=== PATIENT | female | born 1945 | race Hispanic/Latino ===

== ENCOUNTER 2018-01-12 16:49 | Emergency (ER) | payer MEDICARE, OTHER ==
[2018-01-12 17:27] LABS: BASOPHILS % (AUTO) 1.5 % (0.0-5.0); EOSINOPHILS % (AUTO) 5.7 % (0.0-8.0); LYMPHOCYTES % (AUTO) 28.9 % (21.0-51.0); MEAN CORPUSCULAR HEMOGLOBIN 28.3 pg (27.0-33.0); MEAN CORPUSCULAR HGB CONC 33.3 g/dL (32.0-36.0); MONOCYTES % (AUTO) 9.1 % (3.0-13.0); NEUTROPHILS % (AUTO) 54.8 % (40.0-77.0); PLATELET COUNT (AUTO) 665 K/uL (130-400); RED BLOOD CELL COUNT(AUTO) 4.47 MIL/uL (4.00-5.50); RED CELL DISTRIBUTION WIDTH 14.5 % (11.0-15.5); WHITE BLOOD COUNT (AUTO) 10.3 K/uL (4.8-10.8)
[2018-01-12 17:37] LABS: CREATININE 0.6 mg/dL (0.5-1.5); INR 0.94 (0.85-1.15); PARTIAL THROMBOPLASTIN TIME 24.3 SEC (26.3-35.5); POTASSIUM 4.1 mmol/L (3.5-5.1); PROTHROMBIN TIME 9.9 SEC (9.6-11.6)
[2018-01-12 17:42] LABS: ALBUMIN 3.5 g/dL (3.5-5.0); BILIRUBIN,TOTAL 0.3 mg/dL (0.2-1.0); TOTAL PROTEIN, SERUM 7.3 g/dL (6.0-8.3)
[2018-01-12 18:37] LABS: APPEARANCE,URINE Clear (CLEAR); BILIRUBIN,URINE Negative (NEGATIVE); COLOR,URINE Yellow (YELLOW); GLUCOSE, URINE (UA) 500 mg/dL (NEGATIVE); KETONES,URINE Negative (NEGATIVE); LEUKOCYTE ESTERASE ,URINE Negative (NEGATIVE); NITRATE,URINE Negative (NEGATIVE); OCCULT BLOOD,URINE Negative (NEGATIVE); PH,URINE 6.5 (5.0-8.0); PROTEIN,URINE Negative (NEGATIVE); UROBILINOGEN,URINE 0.2 mg/dL (0.2-1.0)
[2018-01-12 19:38] LABS: BACTERIA,URINE Rare /HPF (None Seen); RBC,URINE 0-1 /HPF (0-1); SQUAMOUS EPITHELIAL CELL,UR Rare /LPF (0-2); WBC,URINE 0-1 /HPF (0-1)
[2018-01-12] MEDS ORDERED: PREDNISONE 20 MG TABLET ONE (20:11)
== END 2018-01-12 20:32 | disposition home or self-care (01) ==
LOC: EDH 16:49
DX: G51.0 Bell's palsy (principal); E11.65 Type 2 diabetes mellitus with hyperglycemia; I10 Essential (primary) hypertension; E78.5 Hyperlipidemia, unspecified; R79.1 Abnormal coagulation profile; Z98.51 Tubal ligation status; Z88.8 Allergy status to other drugs, medicaments and biological substances
CPT/HCPCS: 36415; 70450; 80053; 81001; 82948; 85025; 85610; 85730

== ENCOUNTER 2018-01-17 21:33 | Emergency (ER) | payer OTHER | END 2018-01-17 21:38 | disposition home or self-care (01) | LOC: EDH 21:33 | DX: Z53.21 Procedure and treatment not carried out due to patient leaving prior to being seen by health care provider (principal) ==

== ENCOUNTER 2022-10-27 17:24 | Inpatient (IN) | payer MEDICARE ==
[~2022-10-27] VITALS: Ht 154.9 cm; Wt 57.1 kg
[2022-10-27] MEDS ORDERED: IPRATROPIUM/ALBUTEROL SULFATE 3 ML SOLUTION IH ONE (17:30)
[2022-10-27 17:52] LABS: BASOPHILS % (AUTO) 1.5 % (0.0-5.0); EOSINOPHILS % (AUTO) 0.6 % (0.0-8.0); HEMATOCRIT 34.4 % (36-48); LYMPHOCYTES % (AUTO) 15.5 % (21.0-51.0); MEAN CORPUSCULAR HEMOGLOBIN 29.8 pg (27.0-33.0); MEAN CORPUSCULAR HGB CONC 31.1 g/dL (32.0-36.0); MEAN CORPUSCULAR VOLUME 95.8 fL (79-99); MONOCYTES % (AUTO) 14.3 % (3.0-13.0); NEUTROPHILS % (AUTO) 67.4 % (40.0-77.0); PLATELET COUNT (AUTO) 419 K/uL (130-400); RED BLOOD CELL COUNT(AUTO) 3.59 MIL/uL (4.00-5.50); RED CELL DISTRIBUTION WIDTH 19.7 % (11.0-15.5); WHITE BLOOD COUNT (AUTO) 12.2 K/uL (4.8-10.8)
[2022-10-27 18:20] LABS: POTASSIUM 3.6 mmol/L (3.5-5.1); TOTAL PROTEIN, SERUM 6.4 g/dL (6.0-8.3)
[2022-10-27] MEDS ORDERED: FUROSEMIDE 20MG VIAL IV ONE (19:00)
[2022-10-27] MEDS ORDERED: FUROSEMIDE 40MG VIAL IV ONE (19:30)
[2022-10-27] MEDS ORDERED: ACETAMINOPHEN 650 MG SUPPOSITORY RC PRN (20:00)
[2022-10-27] MEDS ORDERED: DOCUSATE SODIUM 100 MG CAP PO PRN (20:00)
[2022-10-27] MEDS ORDERED: LABETALOL 20MG SYG IV PRN (20:00)
[2022-10-27] MEDS ORDERED: CLONIDINE HCL 0.1 MG TABLET PO PRN (20:00)
[2022-10-27] MEDS ORDERED: IPRATROPIUM 0.5 MG/2.5 ML INH IH PRN (20:00)
[2022-10-27] MEDS ORDERED: LACTULOSE 20 GM/30 ML UDCUP PO PRN (20:00)
[2022-10-27] MEDS ORDERED: ALBUTEROL 0.083% 2.5 MG/3 ML INH IH PRN (20:00)
[2022-10-27] MEDS ORDERED: HYDRALAZINE 20MG/ML VIAL IV PRN (20:00)
[2022-10-27] MEDS ORDERED: AZITHROMYCIN 500MG+NS 250ML IVPB SCH (20:30)
[2022-10-27] MEDS ORDERED: CEFTRIAXONE 1G VIAL IVP ONE (20:30)
[2022-10-27] MEDS: ATORVASTATIN 40 MG TABLET PO SCH (21:36)
[2022-10-28] VITALS (18 sets, daily range): BP systolic 120–145; BP diastolic 49–58
[2022-10-28] MEDS: FUROSEMIDE 40MG VIAL IV SCH ×2 (00:20→07:43)
[2022-10-28] MEDS ORDERED: FUROSEMIDE 40MG VIAL IV SCH (05:30)
[2022-10-28 07:12] LABS: BASOPHILS % (AUTO) 1.8 % (0.0-5.0); EOSINOPHILS % (AUTO) 0.8 % (0.0-8.0); HEMATOCRIT 30.6 % (36-48); LYMPHOCYTES % (AUTO) 15.5 % (21.0-51.0); MEAN CORPUSCULAR HEMOGLOBIN 30.1 pg (27.0-33.0); MEAN CORPUSCULAR HGB CONC 30.7 g/dL (32.0-36.0); MEAN CORPUSCULAR VOLUME 98.1 fL (79-99); MONOCYTES % (AUTO) 15.4 % (3.0-13.0); NEUTROPHILS % (AUTO) 65.6 % (40.0-77.0); PLATELET COUNT (AUTO) 358 K/uL (130-400); RED BLOOD CELL COUNT(AUTO) 3.12 MIL/uL (4.00-5.50); RED CELL DISTRIBUTION WIDTH 19.5 % (11.0-15.5); WHITE BLOOD COUNT (AUTO) 11.9 K/uL (4.8-10.8)
[2022-10-28 07:21] LABS: HEMOGLOBIN A1C 4.8 % (4.0-6.0)
[2022-10-28] MEDS ORDERED: GUAIFENESIN-DM 200/20 MG 10 ML PO PRN (07:30)
[2022-10-28] MEDS ORDERED: DOXYCYCLINE 100MG+NS 250ML IV SCH (07:30)
[2022-10-28] MEDS: IPRATROPIUM 0.5 MG/2.5 ML INH IH SCH ×5 (07:33→22:34)
[2022-10-28 07:34] LABS: CREATININE 2.3 mg/dL (0.5-1.5); PHOSPHORUS 2.6 mg/dL (2.5-4.9); POTASSIUM 3.7 mmol/L (3.5-5.1)
[2022-10-28] MEDS: ASPIRIN 81MG CHEW TAB PO SCH (07:43)
[2022-10-28] MEDS: APIXABAN 2.5 MG TABLET PO SCH ×2 (07:45→20:38)
[2022-10-28 08:10] LABS: THYROID STIMULATING HORMONE 119.08 uIU/mL (0.36-3.74)
[2022-10-28] MEDS ORDERED: ENOXAPARIN SODIUM 30 MG/0.3 ML SQ SCH (09:00)
[2022-10-28] MEDS: DEXTROSE 50%-WATER 50 ML DISP.SYRIN IV PRN ×2 (09:30→14:05)
[2022-10-28] MEDS ORDERED: GLUCAGON 1MG KIT 1 MG ML IM PRN (09:30)
[2022-10-28] MEDS ORDERED: POTASSIUM CHLORIDE 20MEQ/100ML 100 ML IV PRN ×2 (09:30)
[2022-10-28] MEDS ORDERED: LIDOCAINE HCL-MPF 1% 2ML VIAL IV PRN ×2 (09:30)
[2022-10-28] MEDS ORDERED: LEVOTHYROXINE 100MCG VIAL IV SCH (10:00)
[2022-10-28] MEDS: EPOETIN ALFA-EPBX (NON-ESRD) 10,000 UNIT/ML VIAL SQ SCH (12:37)
[2022-10-28 13:40] LABS: ABG BASE EXCESS -3.6 mmol/L (-2.0-3.0); ABG HCO3 22.8 mmol/L (21.0-28.0); ABG OXYGEN SATURATION 96.2 % (95.0-99.0); ABG PCO2 46 mmHg (32-45)
[2022-10-28] MEDS ORDERED: HYDROCORTISONE SOD SUCCINATE 100 MG/2 ML VIAL IV SCH (15:07)
[2022-10-28] MEDS: HEPARIN 5,000 UNIT VIAL IRRIG PRN (20:00)
[2022-10-28] MEDS: DOXYCYCLINE 100MG+NS 250ML IV SCH (20:38)
[2022-10-28] MEDS: AMIODARONE 200 MG TABLET PO SCH (20:38)
[2022-10-28] MEDS: ATORVASTATIN 40 MG TABLET PO SCH (20:38)
[2022-10-29] MEDS: HYDROCORTISONE SOD SUCCINATE 100 MG/2 ML VIAL IV SCH ×5 (00:09→23:43)
[2022-10-29] MEDS: ZOSYN 3.375GM +NS 50ML IV SCH ×3 (00:19→23:43)
[2022-10-29] MEDS: ACETAMINOPHEN 325 MG TAB PO PRN ×2 (01:25→20:17)
[2022-10-29] MEDS: IPRATROPIUM 0.5 MG/2.5 ML INH IH SCH ×3 (02:38→10:16)
[2022-10-29 03:41] VITALS: BP 110/51
[2022-10-29 04:47] LABS: HEMATOCRIT 32.8 % (36-48); MEAN CORPUSCULAR HGB CONC 30.8 g/dL (32.0-36.0); MEAN CORPUSCULAR VOLUME 97.3 fL (79-99); RED BLOOD CELL COUNT(AUTO) 3.37 MIL/uL (4.00-5.50); RED CELL DISTRIBUTION WIDTH 19.5 % (11.0-15.5); WHITE BLOOD COUNT (AUTO) 8.5 K/uL (4.8-10.8)
[2022-10-29 05:07] LABS: CREATININE 1.7 mg/dL (0.5-1.5); POTASSIUM 4.3 mmol/L (3.5-5.1)
[2022-10-29] MEDS ORDERED: LEVOTHYROXINE 75 MCG TABLET PO SCH (06:30)
[2022-10-29] MEDS ORDERED: LEVOTHYROXINE 100MCG VIAL IV SCH ×4 (06:30→23:00)
[2022-10-29] MEDS ORDERED: LEVO250T75 PO (07:44)
[2022-10-29] MEDS ORDERED: IPRA3AMP24 IH (07:44)
[2022-10-29] MEDS ORDERED: GUAI600T50 PO (07:44)
[2022-10-29] MEDS ORDERED: MIDO10TA PO (07:48)
[2022-10-29] MEDS ORDERED: METO25TA6 PO (07:48)
[2022-10-29] MEDS ORDERED: ONDA4TAB10 PO (07:48)
[2022-10-29] MEDS ORDERED: AMIO200T68 PO (07:58)
[2022-10-29] MEDS ORDERED: FURO-152 PO (07:58)
[2022-10-29] MEDS ORDERED: LEVO25CA4 PO (07:58)
[2022-10-29] MEDS ORDERED: ASCO-382 PO (07:58)
[2022-10-29] MEDS ORDERED: APIX2.5T PO (07:58)
[2022-10-29] MEDS ORDERED: PARO10TA71 PO (07:58)
[2022-10-29] MEDS ORDERED: ATOR40TA71 PO (07:58)
[2022-10-29] MEDS ORDERED: FOLI1TAB85 PO (07:58)
[2022-10-29] MEDS ORDERED: MELA3TAB69 PO (07:58)
[2022-10-29] MEDS ORDERED: OMEP20TA20 PO (07:58)
[2022-10-29] MEDS ORDERED: ZINC220C6 PO (07:58)
[2022-10-29] MEDS ORDERED: AMLO-257 PO (07:58)
[2022-10-29 08:15] VITALS: BP 126/61
[2022-10-29] MEDS: DOXYCYCLINE 100MG+NS 250ML IV SCH ×2 (08:57→20:16)
[2022-10-29] MEDS: ASPIRIN 81MG CHEW TAB PO SCH (09:02)
[2022-10-29] MEDS: APIXABAN 2.5 MG TABLET PO SCH ×2 (09:02→20:16)
[2022-10-29 12:08] LABS: HEPATITIS B SURFACE ANTIGEN Non-Reactive (Nonreactive)
[2022-10-29 12:16] VITALS: BP 139/59
[2022-10-29 16:08] VITALS: BP 152/61
[2022-10-29 20:00] VITALS: BP 152/64
[2022-10-29] MEDS: AMIODARONE 200 MG TABLET PO SCH (20:16)
[2022-10-29] MEDS: ATORVASTATIN 40 MG TABLET PO SCH (20:16)
[2022-10-29 23:34] VITALS: BP 122/71
[2022-10-30] VITALS (20 sets, daily range): BP systolic 122–153; BP diastolic 52–81
[2022-10-30 05:00] LABS: HEMATOCRIT 33.6 % (36-48); MEAN CORPUSCULAR HGB CONC 31.3 g/dL (32.0-36.0); RED BLOOD CELL COUNT(AUTO) 3.5 MIL/uL (4.00-5.50); RED CELL DISTRIBUTION WIDTH 19.6 % (11.0-15.5); WHITE BLOOD COUNT (AUTO) 11.2 K/uL (4.8-10.8)
[2022-10-30 05:11] LABS: CREATININE 2.4 mg/dL (0.5-1.5); POTASSIUM 4.1 mmol/L (3.5-5.1)
[2022-10-30] MEDS: HYDROCORTISONE SOD SUCCINATE 100 MG/2 ML VIAL IV SCH ×5 (05:52→23:31)
[2022-10-30] MEDS: LEVOTHYROXINE 75 MCG TABLET PO SCH (05:52)
[2022-10-30] MEDS: ASPIRIN 81MG CHEW TAB PO SCH (08:25)
[2022-10-30] MEDS: DOXYCYCLINE 100MG+NS 250ML IV SCH ×2 (08:25→20:21)
[2022-10-30] MEDS: BALSAM PERU/CASTOR OIL 60 GM TUBE TP SCH (08:25)
[2022-10-30] MEDS: APIXABAN 2.5 MG TABLET PO SCH ×2 (08:25→20:21)
[2022-10-30] MEDS: HEPARIN 5,000 UNIT VIAL IRRIG PRN (12:45)
[2022-10-30] MEDS: ZOSYN 3.375GM +NS 50ML IV SCH ×2 (13:49→23:31)
[2022-10-30] MEDS: ONDANSETRON 4MG INJ IVP PRN (17:58)
[2022-10-30] MEDS: ATORVASTATIN 40 MG TABLET PO SCH (20:21)
[2022-10-30] MEDS: AMIODARONE 200 MG TABLET PO SCH (20:21)
[2022-10-31] VITALS (7 sets, daily range): BP systolic 109–149; BP diastolic 48–89
[2022-10-31 05:07] LABS: HEMATOCRIT 33.9 % (36-48); MEAN CORPUSCULAR HEMOGLOBIN 29.8 pg (27.0-33.0); MEAN CORPUSCULAR HGB CONC 32.7 g/dL (32.0-36.0); MEAN CORPUSCULAR VOLUME 91.1 fL (79-99); NUCLEATED RED BLOOD CELLS 0.2 % (0.0-0.19); RED BLOOD CELL COUNT(AUTO) 3.72 MIL/uL (4.00-5.50); RED CELL DISTRIBUTION WIDTH 19.5 % (11.0-15.5); WHITE BLOOD COUNT (AUTO) 10.2 K/uL (4.8-10.8)
[2022-10-31 05:33] LABS: CREATININE 2.1 mg/dL (0.5-1.5); POTASSIUM 3.2 mmol/L (3.5-5.1)
[2022-10-31] MEDS: HYDROCORTISONE SOD SUCCINATE 100 MG/2 ML VIAL IV SCH ×4 (06:18→23:54)
[2022-10-31] MEDS: LEVOTHYROXINE 75 MCG TABLET PO SCH (06:18)
[2022-10-31] MEDS: KCL 20 MEQ ERTAB PO PRN (06:19)
[2022-10-31] MEDS ORDERED: LEVOTHYROXINE 75 MCG TABLET PO SCH (06:30)
[2022-10-31] MEDS: BALSAM PERU/CASTOR OIL 60 GM TUBE TP SCH (09:00)
[2022-10-31] MEDS: APIXABAN 2.5 MG TABLET PO SCH ×2 (10:00→20:05)
[2022-10-31] MEDS: DOXYCYCLINE 100MG+NS 250ML IV SCH ×2 (10:00→20:04)
[2022-10-31] MEDS: ASPIRIN 81MG CHEW TAB PO SCH (10:01)
[2022-10-31] MEDS: ZOSYN 3.375GM +NS 50ML IV SCH ×2 (14:01→23:54)
[2022-10-31] MEDS ORDERED: ONDANSETRON ODT 4MG TAB PO PRN (20:00)
[2022-10-31] MEDS ORDERED: IPRATROPIUM/ALBUTEROL SULFATE 3 ML SOLUTION IH PRN (20:00)
[2022-10-31] MEDS ORDERED: GUAIFENESIN 600 MG TABLET.ER PO PRN (20:00)
[2022-10-31] MEDS: POTASSIUM CHLORIDE 10% ELIXIR 20 MEQ/15 ML UDCUP PO PRN (20:04)
[2022-10-31] MEDS: AMIODARONE 200 MG TABLET PO SCH (20:05)
[2022-10-31] MEDS: ATORVASTATIN 40 MG TABLET PO SCH (20:05)
[2022-10-31] MEDS ORDERED: 0.9% NACL 250ML 250 ML ONE (20:13)
[2022-10-31] MEDS ORDERED: Melatonin 3 MG PO PRN (20:30)
[2022-10-31] MEDS ORDERED: MIDODRINE HCL 5 MG TABLET PO PRN (20:30)
[2022-10-31] MEDS: DEXTROSE 50%-WATER 50 ML DISP.SYRIN IV PRN (20:51)
[2022-10-31] MEDS ORDERED: APIXABAN 2.5 MG TABLET PO SCH (21:00)
[2022-10-31] MEDS ORDERED: ATORVASTATIN 40 MG TABLET PO SCH (21:00)
[2022-10-31] MEDS: METOPROLOL TARTRATE 25 MG TAB PO SCH (22:17)
[2022-10-31] MEDS: ASCORBIC ACID 500 MG TAB PO SCH (22:17)
[2022-11-01 04:32] VITALS: BP 118/50
[2022-11-01 04:34] LABS: HEMATOCRIT 34.3 % (36-48); MEAN CORPUSCULAR HEMOGLOBIN 29.8 pg (27.0-33.0); MEAN CORPUSCULAR HGB CONC 31.8 g/dL (32.0-36.0); MEAN CORPUSCULAR VOLUME 93.7 fL (79-99); NUCLEATED RED BLOOD CELLS 0.3 % (0.0-0.19); RED BLOOD CELL COUNT(AUTO) 3.66 MIL/uL (4.00-5.50); RED CELL DISTRIBUTION WIDTH 19.4 % (11.0-15.5); WHITE BLOOD COUNT (AUTO) 11.9 K/uL (4.8-10.8)
[2022-11-01 04:44] LABS: CREATININE 2.7 mg/dL (0.5-1.5); POTASSIUM 3.6 mmol/L (3.5-5.1)
[2022-11-01] MEDS: HYDROCORTISONE SOD SUCCINATE 100 MG/2 ML VIAL IV SCH ×4 (05:02→22:57)
[2022-11-01] MEDS: LEVOTHYROXINE 75 MCG TABLET PO SCH (05:56)
[2022-11-01 08:00] VITALS: BP 132/60
[2022-11-01] MEDS: Vitamin B Complex/Vit C/Folic Acid PO SCH (08:46)
[2022-11-01] MEDS: DOXYCYCLINE 100MG+NS 250ML IV SCH ×2 (08:46→19:42)
[2022-11-01] MEDS: ASPIRIN 81MG CHEW TAB PO SCH (08:47)
[2022-11-01] MEDS: AMLODIPINE 5 MG TAB PO SCH (08:47)
[2022-11-01] MEDS: APIXABAN 2.5 MG TABLET PO SCH ×2 (08:47→19:43)
[2022-11-01] MEDS: ZINC SULFATE 220 CAPSULE PO SCH (08:47)
[2022-11-01] MEDS: METOPROLOL TARTRATE 25 MG TAB PO SCH ×2 (08:54→19:42)
[2022-11-01] MEDS: PANTOPRAZOLE 40 MG TAB DR PO SCH (08:54)
[2022-11-01] MEDS: ASCORBIC ACID 500 MG TAB PO SCH ×2 (08:54→19:43)
[2022-11-01] MEDS: BALSAM PERU/CASTOR OIL 60 GM TUBE TP SCH (09:00)
[2022-11-01 12:00] VITALS: BP 136/64
[2022-11-01] MEDS: MEROPENEM 1 GM VIAL IVP SCH ×2 (13:01→21:58)
[2022-11-01 16:00] VITALS: BP 133/55
[2022-11-01] MEDS: AMIODARONE 200 MG TABLET PO SCH (19:42)
[2022-11-01] MEDS: ATORVASTATIN 40 MG TABLET PO SCH (19:43)
[2022-11-01 20:15] VITALS: BP 143/54
[2022-11-01 23:20] VITALS: BP 105/69
[2022-11-02] VITALS (20 sets, daily range): BP systolic 120–147; BP diastolic 47–96
[2022-11-02 03:59] LABS: HEMATOCRIT 34.1 % (36-48); MEAN CORPUSCULAR HEMOGLOBIN 29.5 pg (27.0-33.0); MEAN CORPUSCULAR HGB CONC 32.6 g/dL (32.0-36.0); MEAN CORPUSCULAR VOLUME 90.7 fL (79-99); NUCLEATED RED BLOOD CELLS 0.4 % (0.0-0.19); RED BLOOD CELL COUNT(AUTO) 3.76 MIL/uL (4.00-5.50); RED CELL DISTRIBUTION WIDTH 19.9 % (11.0-15.5); WHITE BLOOD COUNT (AUTO) 14.1 K/uL (4.8-10.8)
[2022-11-02 04:03] LABS: PLATELET COUNT (AUTO) 717 K/uL (130-400)
[2022-11-02 04:06] LABS: CREATININE 3.3 mg/dL (0.5-1.5); POTASSIUM 3.9 mmol/L (3.5-5.1)
[2022-11-02] MEDS: LEVOTHYROXINE 75 MCG TABLET PO SCH (04:40)
[2022-11-02] MEDS: HYDROCORTISONE SOD SUCCINATE 100 MG/2 ML VIAL IV SCH ×4 (04:40→21:17)
[2022-11-02 04:51] LABS: PLATELET MORPHOLOGY COMMENT LARGE PLTS PRESENT
[2022-11-02] MEDS: DOXYCYCLINE 100MG+NS 250ML IV SCH ×2 (09:00→21:17)
[2022-11-02] MEDS: Vitamin B Complex/Vit C/Folic Acid PO SCH (09:00)
[2022-11-02] MEDS: APIXABAN 2.5 MG TABLET PO SCH (09:00)
[2022-11-02] MEDS: ASCORBIC ACID 500 MG TAB PO SCH ×2 (09:00→21:16)
[2022-11-02] MEDS: AMLODIPINE 5 MG TAB PO SCH (09:00)
[2022-11-02] MEDS: METOPROLOL TARTRATE 25 MG TAB PO SCH ×2 (09:00→21:16)
[2022-11-02] MEDS: PANTOPRAZOLE 40 MG TAB DR PO SCH (09:00)
[2022-11-02] MEDS: ASPIRIN 81MG CHEW TAB PO SCH (09:00)
[2022-11-02] MEDS: BALSAM PERU/CASTOR OIL 60 GM TUBE TP SCH (09:00)
[2022-11-02] MEDS: ZINC SULFATE 220 CAPSULE PO SCH (09:00)
[2022-11-02] MEDS ORDERED: BENZONATATE 100 MG CAPSULE PO PRN (11:30)
[2022-11-02] MEDS ORDERED: GUAIFENESIN SUGAR-FREE 100 MG/5 ML UDCUP PO PRN (11:30)
[2022-11-02] MEDS: HEPARIN 5,000 UNIT VIAL IRRIG PRN (13:26)
[2022-11-02] MEDS: MEROPENEM 1 GM VIAL IVP SCH ×2 (14:20→21:17)
[2022-11-02] MEDS: EPOETIN ALFA-EPBX (NON-ESRD) 10,000 UNIT/ML VIAL SQ SCH (14:21)
[2022-11-02 14:39] LABS: INR 1.45 (0.85-1.15); PROTHROMBIN TIME 15.5 SEC (9.6-11.6)
[2022-11-02] MEDS: TEMAZEPAM 15 MG CAPSULE PO PRN (19:23)
[2022-11-02] MEDS: AMIODARONE 200 MG TABLET PO SCH (21:16)
[2022-11-02] MEDS: ATORVASTATIN 40 MG TABLET PO SCH (21:16)
[2022-11-02] MEDS: DEXTROSE 50%-WATER 50 ML DISP.SYRIN IV PRN (22:21)
[2022-11-03] MEDS: ACETAMINOPHEN 325 MG TAB PO PRN (03:30)
[2022-11-03 04:28] VITALS: BP 123/60
[2022-11-03 04:52] LABS: HEMATOCRIT 37.6 % (36-48); MEAN CORPUSCULAR HEMOGLOBIN 29.3 pg (27.0-33.0); MEAN CORPUSCULAR HGB CONC 31.4 g/dL (32.0-36.0); MEAN CORPUSCULAR VOLUME 93.3 fL (79-99); NUCLEATED RED BLOOD CELLS 0.2 % (0.0-0.19); RED BLOOD CELL COUNT(AUTO) 4.03 MIL/uL (4.00-5.50); RED CELL DISTRIBUTION WIDTH 20.2 % (11.0-15.5); WHITE BLOOD COUNT (AUTO) 12.9 K/uL (4.8-10.8)
[2022-11-03 05:07] LABS: ALBUMIN 2.4 g/dL (3.5-5.0); CREATININE 2.4 mg/dL (0.5-1.5); MAGNESIUM 1.5 mg/dL (1.80-2.40); POTASSIUM 3.6 mmol/L (3.5-5.1); TOTAL PROTEIN, SERUM 5.2 g/dL (6.0-8.3)
[2022-11-03] MEDS: LEVOTHYROXINE 75 MCG TABLET PO SCH (05:47)
[2022-11-03] MEDS: POTASSIUM CHLORIDE 10% ELIXIR 20 MEQ/15 ML UDCUP PO PRN (05:47)
[2022-11-03] MEDS: MAGNESIUM 2GM PREMIX 50ML 50 ML IV PRN (05:47)
[2022-11-03 07:30] VITALS: BP 121/63
[2022-11-03] MEDS: PANTOPRAZOLE 40 MG TAB DR PO SCH (09:23)
[2022-11-03] MEDS: HYDROCORTISONE SOD SUCCINATE 100 MG/2 ML VIAL IV SCH ×2 (09:23→19:25)
[2022-11-03] MEDS: Vitamin B Complex/Vit C/Folic Acid PO SCH (09:23)
[2022-11-03] MEDS: DOXYCYCLINE 100MG+NS 250ML IV SCH ×2 (09:23→19:24)
[2022-11-03] MEDS: AMLODIPINE 5 MG TAB PO SCH (09:23)
[2022-11-03] MEDS: ASPIRIN 81MG CHEW TAB PO SCH (09:24)
[2022-11-03] MEDS: ZINC SULFATE 220 CAPSULE PO SCH (09:24)
[2022-11-03] MEDS: METOPROLOL TARTRATE 25 MG TAB PO SCH ×2 (09:24→19:24)
[2022-11-03] MEDS: ASCORBIC ACID 500 MG TAB PO SCH ×2 (09:24→19:24)
[2022-11-03] MEDS: BALSAM PERU/CASTOR OIL 60 GM TUBE TP SCH (09:39)
[2022-11-03] MEDS: MEROPENEM 1 GM VIAL IVP SCH ×2 (10:36→21:43)
[2022-11-03] MEDS: KCL 20 MEQ ERTAB PO PRN (10:38)
[2022-11-03 11:00] VITALS: BP 135/70
[2022-11-03 16:00] VITALS: BP 167/53
[2022-11-03] MEDS: AMIODARONE 200 MG TABLET PO SCH (19:24)
[2022-11-03] MEDS: TEMAZEPAM 15 MG CAPSULE PO PRN (19:24)
[2022-11-03] MEDS: ATORVASTATIN 40 MG TABLET PO SCH (19:24)
[2022-11-03 20:44] VITALS: BP 128/65
[2022-11-03 23:43] VITALS: BP 113/49
[2022-11-04] VITALS (18 sets, daily range): BP systolic 111–145; BP diastolic 55–82
[2022-11-04] MEDS: LEVOTHYROXINE 75 MCG TABLET PO SCH (05:21)
[2022-11-04] MEDS: METOPROLOL TARTRATE 25 MG TAB PO SCH ×2 (09:00→21:56)
[2022-11-04] MEDS: AMLODIPINE 5 MG TAB PO SCH (09:00)
[2022-11-04] MEDS: BALSAM PERU/CASTOR OIL 60 GM TUBE TP SCH (09:00)
[2022-11-04] MEDS: MEROPENEM 1 GM VIAL IVP SCH ×2 (09:08→23:50)
[2022-11-04] MEDS: DOXYCYCLINE 100MG+NS 250ML IV SCH ×2 (09:08→21:55)
[2022-11-04] MEDS: ZINC SULFATE 220 CAPSULE PO SCH (09:08)
[2022-11-04] MEDS: PANTOPRAZOLE 40 MG TAB DR PO SCH (09:09)
[2022-11-04] MEDS: ASCORBIC ACID 500 MG TAB PO SCH ×2 (09:09→21:55)
[2022-11-04] MEDS: HYDROCORTISONE SOD SUCCINATE 100 MG/2 ML VIAL IV SCH ×2 (09:09→21:55)
[2022-11-04] MEDS: Vitamin B Complex/Vit C/Folic Acid PO SCH (09:09)
[2022-11-04] MEDS: ASPIRIN 81MG CHEW TAB PO SCH (09:09)
[2022-11-04] MEDS: EPOETIN ALFA-EPBX (NON-ESRD) 10,000 UNIT/ML VIAL SQ SCH (09:10)
[2022-11-04] MEDS: TEMAZEPAM 15 MG CAPSULE PO PRN (21:55)
[2022-11-04] MEDS: ATORVASTATIN 40 MG TABLET PO SCH (21:56)
[2022-11-04] MEDS: AMIODARONE 200 MG TABLET PO SCH (21:56)
[2022-11-05 04:47] VITALS: BP 127/56
[2022-11-05 04:59] LABS: HEMATOCRIT 39.2 % (36-48); MEAN CORPUSCULAR HGB CONC 31.6 g/dL (32.0-36.0); MEAN CORPUSCULAR VOLUME 94.7 fL (79-99); NUCLEATED RED BLOOD CELLS 0.2 % (0.0-0.19); PLATELET COUNT (AUTO) 636 K/uL (130-400); RED BLOOD CELL COUNT(AUTO) 4.14 MIL/uL (4.00-5.50); RED CELL DISTRIBUTION WIDTH 20.8 % (11.0-15.5); WHITE BLOOD COUNT (AUTO) 15.3 K/uL (4.8-10.8)
[2022-11-05 05:16] LABS: ALBUMIN 2.3 g/dL (3.5-5.0); CREATININE 2.2 mg/dL (0.5-1.5); MAGNESIUM 1.7 mg/dL (1.80-2.40); POTASSIUM 3.7 mmol/L (3.5-5.1); TOTAL PROTEIN, SERUM 5.1 g/dL (6.0-8.3)
[2022-11-05] MEDS: LEVOTHYROXINE 75 MCG TABLET PO SCH (06:16)
[2022-11-05 07:25] VITALS: BP 120/55
[2022-11-05] MEDS: BALSAM PERU/CASTOR OIL 60 GM TUBE TP SCH (09:00)
[2022-11-05] MEDS: DOXYCYCLINE 100MG+NS 250ML IV SCH ×2 (10:24→20:06)
[2022-11-05] MEDS: MEROPENEM 1 GM VIAL IVP SCH ×2 (10:24→23:13)
[2022-11-05] MEDS: METOPROLOL TARTRATE 25 MG TAB PO SCH ×2 (10:24→20:06)
[2022-11-05] MEDS: ASCORBIC ACID 500 MG TAB PO SCH ×2 (10:25→20:06)
[2022-11-05] MEDS: Vitamin B Complex/Vit C/Folic Acid PO SCH (10:25)
[2022-11-05] MEDS: ZINC SULFATE 220 CAPSULE PO SCH (10:25)
[2022-11-05] MEDS: ASPIRIN 81MG CHEW TAB PO SCH (10:25)
[2022-11-05] MEDS: AMLODIPINE 5 MG TAB PO SCH (10:25)
[2022-11-05] MEDS: PANTOPRAZOLE 40 MG TAB DR PO SCH (10:25)
[2022-11-05 11:25] VITALS: BP 135/53
[2022-11-05 15:20] VITALS: BP 133/63
[2022-11-05 20:00] VITALS: BP 144/53
[2022-11-05] MEDS: AMIODARONE 200 MG TABLET PO SCH (20:06)
[2022-11-05] MEDS: ATORVASTATIN 40 MG TABLET PO SCH (20:06)
[2022-11-06] VITALS (21 sets, daily range): BP systolic 107–145; BP diastolic 51–70
[2022-11-06] MEDS: LEVOTHYROXINE 75 MCG TABLET PO SCH (06:15)
[2022-11-06] MEDS: MEROPENEM 1 GM VIAL IVP SCH ×2 (11:11→21:23)
[2022-11-06] MEDS: PANTOPRAZOLE 40 MG TAB DR PO SCH (11:12)
[2022-11-06] MEDS: ZINC SULFATE 220 CAPSULE PO SCH (11:13)
[2022-11-06] MEDS: Vitamin B Complex/Vit C/Folic Acid PO SCH (11:13)
[2022-11-06] MEDS: ASCORBIC ACID 500 MG TAB PO SCH ×2 (11:13→20:13)
[2022-11-06] MEDS: ASPIRIN 81MG CHEW TAB PO SCH (11:13)
[2022-11-06] MEDS: METOPROLOL TARTRATE 25 MG TAB PO SCH ×2 (11:13→20:13)
[2022-11-06] MEDS: AMLODIPINE 5 MG TAB PO SCH (11:13)
[2022-11-06] MEDS: DOXYCYCLINE 100MG+NS 250ML IV SCH ×2 (11:21→20:13)
[2022-11-06] MEDS: BALSAM PERU/CASTOR OIL 60 GM TUBE TP SCH (11:21)
[2022-11-06] MEDS: SODIUM CL 4MEQ/ML 30ML 77 MEQ in DEXTROSE 10%-WATER 980.75 ML IV SCH (16:00)
[2022-11-06] MEDS ORDERED: DEXTROSE 10%-WATER 1,000 ML IV ONE (17:07)
[2022-11-06] MEDS: HEPARIN 5,000 UNIT VIAL IRRIG PRN (19:17)
[2022-11-06] MEDS: AMIODARONE 200 MG TABLET PO SCH (20:12)
[2022-11-06] MEDS: ATORVASTATIN 40 MG TABLET PO SCH (20:13)
[2022-11-07 04:00] VITALS: BP 121/54
[2022-11-07] MEDS: LEVOTHYROXINE 75 MCG TABLET PO SCH (04:56)
[2022-11-07 05:09] LABS: BASOPHILS % (AUTO) 0.5 % (0.0-5.0); EOSINOPHILS % (AUTO) 7.2 % (0.0-8.0); HEMATOCRIT 39.6 % (36-48); MEAN CORPUSCULAR HEMOGLOBIN 29.6 pg (27.0-33.0); MEAN CORPUSCULAR HGB CONC 31.1 g/dL (32.0-36.0); MEAN CORPUSCULAR VOLUME 95.2 fL (79-99); MONOCYTES % (AUTO) 8.8 % (3.0-13.0); NEUTROPHILS % (AUTO) 68.3 % (40.0-77.0); NUCLEATED RED BLOOD CELLS 0.3 % (0.0-0.19); PLATELET COUNT (AUTO) 399 K/uL (130-400); RED BLOOD CELL COUNT(AUTO) 4.16 MIL/uL (4.00-5.50); RED CELL DISTRIBUTION WIDTH 21.2 % (11.0-15.5); WHITE BLOOD COUNT (AUTO) 15.3 K/uL (4.8-10.8)
[2022-11-07 05:35] LABS: CREATININE 2.2 mg/dL (0.5-1.5); MAGNESIUM 1.5 mg/dL (1.80-2.40); PHOSPHORUS 2.7 mg/dL (2.5-4.9); POTASSIUM 4.9 mmol/L (3.5-5.1)
[2022-11-07 07:25] VITALS: BP 115/51
[2022-11-07] MEDS: BALSAM PERU/CASTOR OIL 60 GM TUBE TP SCH (09:00)
[2022-11-07] MEDS: DOXYCYCLINE 100MG+NS 250ML IV SCH ×2 (09:54→19:29)
[2022-11-07] MEDS: MEROPENEM 1 GM VIAL IVP SCH ×2 (09:54→21:51)
[2022-11-07] MEDS: ZINC SULFATE 220 CAPSULE PO SCH (09:54)
[2022-11-07] MEDS: AMLODIPINE 5 MG TAB PO SCH (09:55)
[2022-11-07] MEDS: ASPIRIN 81MG CHEW TAB PO SCH (09:55)
[2022-11-07] MEDS: Vitamin B Complex/Vit C/Folic Acid PO SCH (09:55)
[2022-11-07] MEDS: PANTOPRAZOLE 40 MG TAB DR PO SCH (09:55)
[2022-11-07] MEDS: METOPROLOL TARTRATE 25 MG TAB PO SCH ×2 (09:55→19:30)
[2022-11-07] MEDS: ASCORBIC ACID 500 MG TAB PO SCH ×2 (09:55→19:29)
[2022-11-07 11:25] VITALS: BP 123/56
[2022-11-07 15:25] VITALS: BP 133/71
[2022-11-07] MEDS: SODIUM CL 4MEQ/ML 30ML 77 MEQ in DEXTROSE 10%-WATER 980.75 ML IV SCH (16:00)
[2022-11-07] MEDS: MAGNESIUM 2GM PREMIX 50ML 50 ML IV PRN (17:19)
[2022-11-07] MEDS: ATORVASTATIN 40 MG TABLET PO SCH (19:29)
[2022-11-07] MEDS: AMIODARONE 200 MG TABLET PO SCH (19:29)
[2022-11-07 21:01] VITALS: BP 118/57
[2022-11-08 00:06] VITALS: BP 117/55
[2022-11-08 04:36] VITALS: BP 120/54
[2022-11-08] MEDS: LEVOTHYROXINE 75 MCG TABLET PO SCH (04:40)
[2022-11-08 05:06] LABS: HEMATOCRIT 39.7 % (36-48); MEAN CORPUSCULAR HEMOGLOBIN 29.6 pg (27.0-33.0); MEAN CORPUSCULAR HGB CONC 32.2 g/dL (32.0-36.0); MEAN CORPUSCULAR VOLUME 91.7 fL (79-99); NUCLEATED RED BLOOD CELLS 0.4 % (0.0-0.19); PLATELET COUNT (AUTO) 448 K/uL (130-400); RED BLOOD CELL COUNT(AUTO) 4.33 MIL/uL (4.00-5.50); RED CELL DISTRIBUTION WIDTH 20.3 % (11.0-15.5); WHITE BLOOD COUNT (AUTO) 16.1 K/uL (4.8-10.8)
[2022-11-08 05:27] LABS: BAND NEUTROPHILS % (MANUAL) 2 % (0-2); EOSINOPHILS % (MANUAL) 7 % (1-6); LYMPHOCYTES % (MANUAL) 5 % (22-44); MAN.DIFF COMMENT-IMPRESSION MANUAL DIFFERENTIAL; MONOCYTES % (MANUAL) 7 % (2-9); SEGMENTED NEUTROPHILS % 79 % (40-70)
[2022-11-08 05:28] LABS: PLATELET MORPHOLOGY COMMENT ADEQUATE
[2022-11-08 05:29] LABS: ALBUMIN 2.4 g/dL (3.5-5.0); CREATININE 2.8 mg/dL (0.5-1.5); PHOSPHORUS 3.1 mg/dL (2.5-4.9); POTASSIUM 3.8 mmol/L (3.5-5.1)
[2022-11-08 07:59] VITALS: BP 123/56
[2022-11-08] MEDS: Vitamin B Complex/Vit C/Folic Acid PO SCH (08:56)
[2022-11-08] MEDS: DOXYCYCLINE 100MG+NS 250ML IV SCH ×2 (08:56→20:10)
[2022-11-08] MEDS: METOPROLOL TARTRATE 25 MG TAB PO SCH ×2 (08:57→20:10)
[2022-11-08] MEDS: PANTOPRAZOLE 40 MG TAB DR PO SCH (08:57)
[2022-11-08] MEDS: ZINC SULFATE 220 CAPSULE PO SCH (08:57)
[2022-11-08] MEDS: ASCORBIC ACID 500 MG TAB PO SCH ×2 (08:57→20:10)
[2022-11-08] MEDS: AMLODIPINE 5 MG TAB PO SCH (08:57)
[2022-11-08] MEDS: ASPIRIN 81MG CHEW TAB PO SCH (08:57)
[2022-11-08] MEDS: BALSAM PERU/CASTOR OIL 60 GM TUBE TP SCH ×2 (08:58→20:12)
[2022-11-08] MEDS: ONDANSETRON 4MG INJ IVP PRN (10:44)
[2022-11-08] MEDS: MEROPENEM 1 GM VIAL IVP SCH ×2 (10:44→22:39)
[2022-11-08 11:54] VITALS: BP 111/65
[2022-11-08 16:00] VITALS: BP 115/49
[2022-11-08] MEDS ORDERED: NYSTATIN 15 GM POWDER TP ONE (16:00)
[2022-11-08] MEDS: NYSTATIN 15 GM POWDER TP SCH ×2 (16:19→20:12)
[2022-11-08] MEDS ORDERED: 0.9% NACL 250ML 250 ML ONE (20:08)
[2022-11-08] MEDS: AMIODARONE 200 MG TABLET PO SCH (20:10)
[2022-11-08] MEDS: ATORVASTATIN 40 MG TABLET PO SCH (20:10)
[2022-11-08 20:29] VITALS: BP 115/46
[2022-11-09] VITALS (19 sets, daily range): BP systolic 105–138; BP diastolic 48–66
[2022-11-09 05:09] LABS: CREATININE 3.5 mg/dL (0.5-1.5); MAGNESIUM 1.7 mg/dL (1.80-2.40); POTASSIUM 3.9 mmol/L (3.5-5.1)
[2022-11-09] MEDS: MAGNESIUM 2GM PREMIX 50ML 50 ML IV PRN (05:21)
[2022-11-09] MEDS: LEVOTHYROXINE 75 MCG TABLET PO SCH (05:21)
[2022-11-09 05:50] LABS: HEMATOCRIT 36.3 % (36-48); MEAN CORPUSCULAR HEMOGLOBIN 29.5 pg (27.0-33.0); MEAN CORPUSCULAR HGB CONC 32.8 g/dL (32.0-36.0); MEAN CORPUSCULAR VOLUME 90.1 fL (79-99); NUCLEATED RED BLOOD CELLS 0.2 % (0.0-0.19); RED BLOOD CELL COUNT(AUTO) 4.03 MIL/uL (4.00-5.50); WHITE BLOOD COUNT (AUTO) 18.3 K/uL (4.8-10.8)
[2022-11-09] MEDS: METOPROLOL TARTRATE 25 MG TAB PO SCH ×2 (09:00→21:37)
[2022-11-09] MEDS: AMLODIPINE 5 MG TAB PO SCH (09:00)
[2022-11-09] MEDS ORDERED: FLUDROCORTISONE ACETATE 0.1 MG TABLET PO SCH (09:00)
[2022-11-09] MEDS: BALSAM PERU/CASTOR OIL 60 GM TUBE TP SCH ×3 (09:00→21:38)
[2022-11-09] MEDS: NYSTATIN 15 GM POWDER TP SCH ×3 (09:00→21:38)
[2022-11-09] MEDS ORDERED: 0.9% NACL 250ML 250 ML ONE (10:10)
[2022-11-09] MEDS: Vitamin B Complex/Vit C/Folic Acid PO SCH (10:15)
[2022-11-09] MEDS: PANTOPRAZOLE 40 MG TAB DR PO SCH (10:15)
[2022-11-09] MEDS: ASPIRIN 81MG CHEW TAB PO SCH (10:15)
[2022-11-09] MEDS: ZINC SULFATE 220 CAPSULE PO SCH (10:15)
[2022-11-09] MEDS: ASCORBIC ACID 500 MG TAB PO SCH ×2 (10:15→21:37)
[2022-11-09] MEDS: MEROPENEM 1 GM VIAL IVP SCH ×2 (10:15→21:38)
[2022-11-09] MEDS: DOXYCYCLINE 100MG+NS 250ML IV SCH ×2 (10:15→21:37)
[2022-11-09] MEDS: EPOETIN ALFA-EPBX (NON-ESRD) 10,000 UNIT/ML VIAL SQ SCH (11:08)
[2022-11-09] MEDS: HEPARIN 5,000 UNIT VIAL IRRIG PRN (18:00)
[2022-11-09] MEDS: AMIODARONE 200 MG TABLET PO SCH (21:37)
[2022-11-09] MEDS: ATORVASTATIN 40 MG TABLET PO SCH (21:37)
== END 2022-11-09 22:20 | DRG 177 ==
LOC: EDH 17:24 → OBSVTOIN 19:44 → EDHIP 19:44 → 4AH 10-28 15:15
PROVIDERS: ADMIT Internal Medicine Critical Care Medicine; ATTEND Internal Medicine Critical Care Medicine
PROC: 5A1D70Z Performance of Urinary Filtration, Intermittent, Less than 6 Hours Per Day (ICD-10-PCS; principal; 2022-10-28)
PROC: 5A1D70Z Performance of Urinary Filtration, Intermittent, Less than 6 Hours Per Day (ICD-10-PCS; 2022-10-30)
PROC: 5A1D70Z Performance of Urinary Filtration, Intermittent, Less than 6 Hours Per Day (ICD-10-PCS; 2022-11-02)
PROC: 5A1D70Z Performance of Urinary Filtration, Intermittent, Less than 6 Hours Per Day (ICD-10-PCS; 2022-11-04)
PROC: 5A1D70Z Performance of Urinary Filtration, Intermittent, Less than 6 Hours Per Day (ICD-10-PCS; 2022-11-06)
PROC: 5A1D70Z Performance of Urinary Filtration, Intermittent, Less than 6 Hours Per Day (ICD-10-PCS; 2022-11-09)
DX: J15.1 Pneumonia due to Pseudomonas (principal); I50.33 Acute on chronic diastolic (congestive) heart failure; J96.01 Acute respiratory failure with hypoxia; N18.6 End stage renal disease; E87.1 Hypo-osmolality and hyponatremia; I13.2 Hypertensive heart and chronic kidney disease with heart failure and with stage 5 chronic kidney disease, or end stage renal disease; I48.20 Chronic atrial fibrillation, unspecified; Z20.822 Contact with and (suspected) exposure to COVID-19; I25.10 Atherosclerotic heart disease of native coronary artery without angina pectoris; L89.322 Pressure ulcer of left buttock, stage 2; L98.429 Non-pressure chronic ulcer of back with unspecified severity; D53.9 Nutritional anemia, unspecified; E83.42 Hypomagnesemia; F32.A Depression, unspecified; I34.0 Nonrheumatic mitral (valve) insufficiency; E11.22 Type 2 diabetes mellitus with diabetic chronic kidney disease; E78.5 Hyperlipidemia, unspecified; E03.9 Hypothyroidism, unspecified; I27.20 Pulmonary hypertension, unspecified; E11.649 Type 2 diabetes mellitus with hypoglycemia without coma; Z93.1 Gastrostomy status; Z86.16 Personal history of COVID-19; Z99.2 Dependence on renal dialysis; Z79.899 Other long term (current) drug therapy; Z86.711 Personal history of pulmonary embolism; Z91.119 Patient's noncompliance with dietary regimen due to unspecified reason; Z91.199 Patient's noncompliance with other medical treatment and regimen due to unspecified reason; Z95.810 Presence of automatic (implantable) cardiac defibrillator; Z95.1 Presence of aortocoronary bypass graft
CPT/HCPCS: 31720; 36415; 71045; 71250; 80048; 80053; 82533; 82550; 82803; 82948; 83036; 83735; 83874; 83880; 84100; 84439; 84443; 84481; 84484; 85025; 85027; 85378; 85610; 86704; 86706; 87071; 87077; 87186; 87205; 87340; 87635; 87804; 90935; 93005; 93306; 93356; 94640; 94664; 97039; G0378; J0456; J0696; J1644; J1720; J1940; J2185; J2405; J2543; J3475; J3490; J7050; J7070; J7131